=== PATIENT | male | born 1980 | race Caucasian/White ===

== ENCOUNTER → 2016-04-20 | Outpatient (CLI) | payer BC, OTHER ==
[~2016-04-20] MED LIST: AMOX875T PO; DXY100 PO; MULT-506 PO; OPTIRAY 320 IV PRN; TOPI25TA10 PO
--- NOTE | 2016-04-20 10:18 | DIAGNOSTIC IMAGING REPORT ---
CT SCAN OF THE CHEST WITH IV CONTRAST CLINICAL HISTORY: Fever of unknown origin. COMPARISON STUDY: Chest x-ray dated 04/05/[address] dated 07/30/2014. TECHNIQUE: Following the IV administration of 119 cc of Optiray 320, CT scan of the thorax was performed from the thoracic inlet to the upper abdomen. Images are reviewed in the axial, sagittal, and coronal planes. IV contrast was administered without complication. CT DOSE: 399.59 mGycm FINDINGS: Thyroid: Imaged portions of the thyroid gland are normal in size and attenuation. Thoracic aorta: The thoracic aorta is normal in caliber and demonstrates bovine variant arch anatomy. No aneurysm or dissection is seen. Pulmonary vasculature: The pulmonary trunk is normal in caliber. There are no filling defects identified in the central pulmonary vessels to indicate pulmonary embolus. Note that this examination was not protocoled for evaluation of the pulmonary arteries. Heart: The heart is normal in size and configuration, and without pericardial effusion. Lungs and pleural spaces: There is no airspace consolidation or pleural effusion. Dependent atelectasis is noted. There is a 4 mm left lower lobe pulmonary nodule seen image #192. This is unchanged from 07/30/2014. The trachea and central airways are clear. Small calcified granulomas are observed. Mediastinum: An AP window node on image #105 measures 1.4 cm in short axis. Ama: Clear. Axillae: There is no axillary lymphadenopathy. Upper abdomen: A 1.6 cm hypervascular focus in the left lobe of the liver is similar image #246. Partially visualized upper abdominal viscera is within normal limits. Skeletal structures: No lytic or blastic bony lesions are seen. A right-sided os acromiale he is incidentally noted. There are healed right-sided rib fractures. IMPRESSION: 1. There is no airspace consolidation or pleural effusion. 2. A 4 mm pulmonary nodule is noted at the left lung base. This is unchanged from previous and of doubtful significance in this age group. 3. There is a 1.6 cm focus of hypervascularity identified in the left lobe of liver. This may represent shunt vascularity or a small flash filling hemangioma and is unchanged from 07/30/2014. This could be further assessed by ultrasound if clinically warranted. 4. There is a mildly enlarged AP window lymph node which measures up to 1.4 cm in short axis. This is of indeterminant significance and may be a reactive basis. 5. Additional changes as above. Electronically signed by: Agustin Pederson M.D. 04/20/2016 10:16 AM Dictated Date/Time: 04/20/2016 10:09 AM
--- NOTE | 2016-04-20 10:53 | DIAGNOSTIC IMAGING REPORT ---
BILIARY ULTRASOUND CLINICAL HISTORY: Fever of unknown origin COMPARISON STUDY: No previous studies for comparison. FINDINGS: The pancreas was poorly visualized. No hepatic masses are visualized. There is no right-sided hydronephrosis. There is an extrarenal pelvis. The common bile duct measures 5 mm. The gallbladder appears sonographically normal. IMPRESSION: 1. Ultrasonographically normal liver and gallbladder 2. Suboptimal visualization the pancreas. 3. No ductal dilatation Electronically signed by: Tom Blanco M.D. 04/20/2016 10:51 AM Dictated Date/Time: 04/20/2016 10:50 AM
== END | disposition home or self-care (01) ==
LOC: C.CTS 09:45
PROVIDERS: ATTEND Internal Medicine Infectious Disease
DX: R50.9 Fever, unspecified (principal)

== ENCOUNTER → 2016-05-02 | Outpatient (CLI) | payer BC, OTHER ==
[~2016-05-02] MED LIST changes: +GADAVIST IV PRN; -OPTIRAY 320 IV PRN
--- NOTE | 2016-05-02 07:53 | DIAGNOSTIC IMAGING REPORT ---
MRI OF THE BRAIN WITHOUT AND WITH IV CONTRAST CLINICAL HISTORY: Progressive headaches. Fever. COMPARISON STUDY: MRI of the brain June 02, 2015. TECHNIQUE: Utilizing a 1.5 Mod[place] magnet and dedicated coil, multiplanar, multiecho imaging of the brain was performed pre and postcontrast administration. IV administration of 8 mL of Gadavist contrast was uneventful. FINDINGS: There are no areas of restricted diffusion. No acute intracranial hemorrhage, midline shift or mass effect is present. Ventricular system is normal. Basilar cisterns are patent. Flow-voids for the major intracranial vessels are present. There are no areas of pathologic enhancement. 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 A smaller adjacent lipoma is also unchanged. These were present on head CT of July 30, 2014. No additional intracranial masses are present. No areas of signal abnormality are identified within the brain. A small amount of fluid within the left mastoid air cells is new since prior MRI of June 02, 2015. There is mild mucosal thickening of the sinuses which has improved. IMPRESSION: 1. No acute intracranial findings. 2. No change in appearance of the brain. 3. Stable 6 mm suprasellar lipoma. 4. Interval development of a small amount of fluid within the left mastoid air cells. Electronically signed by: Forrest Barrera M.D. 05/02/2016 7:51 AM Dictated Date/Time: 05/02/2016 7:38 AM
--- NOTE | 2016-05-02 07:53 | DIAGNOSTIC IMAGING REPORT ---
MRI CERVICAL SPINE COMBO CLINICAL HISTORY: Neck pain, stiffness, fever, progressive headaches. TECHNIQUE: Sagittal and axial T1, T2 and STIR images were obtained. Imaging was performed before and after the administration of 8 cc of intravenous Gadavist. COMPARISON STUDY: Conventional radiographic study dated 06/02/2015 There are no suspicious areas of marrow replacement. No intrinsic cervical cord lesions are visualized. C2-3: There is no evidence of disc bulge or focal herniation. There is no spinal or foraminal stenosis. C3-4: There is no evidence of disc bulge or focal herniation. There is no spinal or foraminal stenosis. C4-5: There are no disc bulges or focal herniations. There is no spinal or foraminal stenosis. C5-6 :There are no disc bulges or focal herniations. There is no spinal or foraminal stenosis. C6-7: There is no evidence of disc bulge or focal herniation. There is no evidence of spinal or foraminal stenosis. C7-T1: There is no evidence of disc bulge or focal herniation. There is no evidence of spinal or foraminal stenosis. Post gadolinium images reveal no evidence of pathologic enhancement There is mild cervical lymphadenopathy, possibly reactive. IMPRESSION: 1. Mildly prominent cervical lymph nodes, possibly reactive 2. No cervical spinal cord or disc abnormalities identified. Electronically signed by: Tom Blanco M.D. 05/02/2016 7:51 AM Dictated Date/Time: 05/02/2016 7:47 AM
== END | disposition home or self-care (01) ==
LOC: C.MRI 06:15
PROVIDERS: ATTEND Psychiatry & Neurology Neurology
DX: R51 Headache (principal); D17.79 Benign lipomatous neoplasm of other sites

== ENCOUNTER 2016-05-22 09:04 | Emergency (ER) | payer BC, OTHER ==
[~2016-05-22] VITALS: Ht 177.8 cm; Wt 78.8 kg
[~2016-05-22 09:04] MED LIST changes: -AMOX875T PO; -GADAVIST IV PRN; -TOPI25TA10 PO
[2016-05-22 09:10] VITALS: TEMP 36.4; Ht 177.8 cm; Wt 78.8 kg
[2016-05-22] MEDS ORDERED: TOPI25TA10 PO (09:49)
[2016-05-22] MEDS ORDERED: KETOROLAC TROMETHAMINE 30 MG/ML VIAL IV STA (10:05)
[2016-05-22] MEDS ORDERED: DiphenhydrAMINE HCL 50 MG/ML VIAL IV STA (10:05)
[2016-05-22] MEDS ORDERED: SODIUM CHLORIDE 0.9% 1000ML 1,000 ML IV STA (10:05)
[2016-05-22] MEDS ORDERED: PROCHLORPERAZINE 5 MG/ML 2 ML VIAL IV STA (10:05)
[2016-05-22 10:35] LABS: BASO % 0.8 %; BASO ABS # 0.07 K/uL (0-0.2); COMPLETE YES; EOS % 10.6 %; HEMATOCRIT 45.4 % (42-52); IG% 0.2 %; LYMPH % 24.2 %; LYMPH ABS # 2.07 K/uL (1.2-3.4); MEAN CELL VOLUME 84.9 fL (80-100); MEAN CORPUSCULAR HEMOGLOBIN 30.7 pg (25-34); MEAN CORPUSCULAR HGB CONC 36.1 g/dl (32-36); MONO % 8.8 %; NEUT % 55.4 %; PLATELET COUNT 243 K/uL (130-400); RED BLOOD COUNT 5.35 M/uL (4.7-6.1); WHITE BLOOD COUNT 8.55 K/uL (4.8-10.8)
[2016-05-22 10:53] LABS: BUN/CREATININE RATIO 8.7 (10-20); CALCIUM 9.1 mg/dl (8.5-10.1); CREATININE 0.98 mg/dl (0.60-1.40); POTASSIUM 3.8 mmol/L (3.5-5.1)
[2016-05-22 11:10] VITALS: BP 117/69; PULSE 97; O2SAT 98
[2016-05-22] MEDS ORDERED: AMOX875T PO (11:11)
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
== END 2016-05-22 11:18 | disposition home or self-care (01) ==
LOC: C.EDB 09:05
DX: R51 Headache (principal); J01.90 Acute sinusitis, unspecified; F17.200 Nicotine dependence, unspecified, uncomplicated

== ENCOUNTER → 2017-08-07 | Outpatient (CLI) | payer OTHER ==
[~2017-08-07] MED LIST changes: -DXY100 PO; +TOPI25TA10 PO
[2017-08-07 18:07] LABS: HEMATOCRIT 44.8 % (42-52); HEMOGLOBIN 16.1 g/dL (14.0-18.0); MEAN CELL VOLUME 85.7 fL (80-100); MEAN CORPUSCULAR HEMOGLOBIN 30.8 pg (25-34); MEAN CORPUSCULAR HGB CONC 35.9 g/dl (32-36); PLATELET COUNT 280 K/uL (130-400); RED CELL DISTRIBUTION WIDTH CV 12.8 % (11.5-14.5); RED CELL DISTRIBUTION WIDTH SD 40.1 fL (36.4-46.3); WHITE BLOOD COUNT 9.45 K/uL (4.8-10.8)
[2017-08-07 20:18] LABS: ALBUMIN 3.8 gm/dl (3.4-5.0); ALKALINE PHOSPHATASE 54 U/L (45-117); ALT/SGPT 30 U/L (12-78); AST/SGOT 22 U/L (15-37); BLOOD UREA NITROGEN 19 mg/dl (7-18); CALCIUM 9.6 mg/dl (8.5-10.1); CARBON DIOXIDE 26 mmol/L (21-32); CREATININE 1.05 mg/dl (0.60-1.40); GLUCOSE 106 mg/dl (70-99); POTASSIUM 3.9 mmol/L (3.5-5.1); SODIUM 136 mmol/L (136-145)
[2017-08-07 20:27] LABS: TOTAL PROTEIN 7.8 gm/dl (6.4-8.2)
== END | disposition home or self-care (01) ==
LOC: C.LABPVFM 16:23
PROVIDERS: ATTEND Family Medicine
DX: E78.5 Hyperlipidemia, unspecified (principal); J01.90 Acute sinusitis, unspecified; G43.909 Migraine, unspecified, not intractable, without status migrainosus

== ENCOUNTER → 2017-08-23 | Outpatient (CLI) | payer OTHER ==
[~2017-08-23] MED LIST changes: +OPTIRAY 320 IV PRN
--- NOTE | 2017-08-23 16:05 | DIAGNOSTIC IMAGING REPORT ---
HEAD COMBO HISTORY: 36 years-old Male D17.79 Brain [id number] follow-up study to assess a suprasellar lipoma COMPARISON: Brain MRI 05/02/2016, CTA had 07/30/2014 TECHNIQUE: Multiple axial CT images of the head were obtained both with and without the use of 93 mL Optiray 320 IV contrast. A dose lowering technique was used consistent with the principals of NISHANT. FINDINGS: Fatty attenuating lesion of the suprasellar cistern is redemonstrated measuring up to 6 mm in greatest dimension, unchanged from comparison brain MRI 05/02/2016. No significant mass effect upon the adjacent structures. No hydrocephalus, intracranial hemorrhage, midline shift, or abnormal extra-axial collections. There is no abnormal intra-axial or extra-axial enhancement. Cerebral venous sinuses appear unremarkable. Arterial vessels of the [place] appear unremarkable. No skull fracture. Mastoid air cells and middle ear cavities appear generally clear. Mild to moderate mucosal thickening of the inferior frontal sinuses, and ethmoid air cells with mild sphenoid sinus mucosal thickening. Small air-fluid level of the right sphenoid sinus. Soft tissues and orbits are unremarkable. IMPRESSION: 1. No acute intracranial abnormality or abnormal enhancement identified. 2. 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 No significant mass effect upon the adjacent structures or hydrocephalus. 3. Paranasal sinus disease as above including acute right sphenoid sinusitis. The above report was generated using voice recognition software. It may contain grammatical, syntax or spelling errors. Electronically signed by: Aleksey Baumann M.D. 08/23/2017 4:04 PM Dictated Date/Time: 08/23/2017 3:59 PM
== END | disposition home or self-care (01) ==
LOC: C.CTS 15:23
PROVIDERS: ATTEND Family Medicine
DX: D17.79 Benign lipomatous neoplasm of other sites (principal); J01.30 Acute sphenoidal sinusitis, unspecified